=== PATIENT | male | born 1980 | race Caucasian/White ===

== ENCOUNTER 2021-01-18 01:38 | Emergency (ER) | payer BC ==
[~2021-01-18] VITALS: Ht 180.3 cm; Wt 79.4 kg
[~2021-01-18 01:38] MED LIST: AZIT250 PO; GUAPHELA PO; HYDACE5 PO; HYDGUAL120 PO; ONDA4ODT MM; PROM25 PO; RXHYDGUAS PO; RXONDA4ODT MM
[2021-01-18] MEDS ORDERED: Prednisone20 MG PO (02:24)
[2021-01-18] MEDS ORDERED: IBU600 MG PO (02:24)
[2021-01-18] MEDS ORDERED: CYCL10 PO (02:24)
== END 2021-01-18 02:43 | disposition home or self-care (01) ==
LOC: ER 01:38
DX: M54.41 Lumbago with sciatica, right side (principal); F17.200 Nicotine dependence, unspecified, uncomplicated; Z88.1 Allergy status to other antibiotic agents
CPT/HCPCS: 99283; J7512

== ENCOUNTER 2024-12-05 17:46 | Emergency (ER) | payer OTHER ==
[~2024-12-05] VITALS: Ht 180.3 cm; Wt 79.4 kg
[~2024-12-05 17:46] MED LIST changes: +CYCL10 PO; +IBU600 MG PO; +Prednisone20 MG PO
[2024-12-05 18:25] VITALS: BP 125/79
[2024-12-05] MEDS ORDERED: Amoxicillin/Clavulanate K 875 MG Tab PO ONE (18:30)
[2024-12-05] MEDS ORDERED: AMOCLA875 PO (19:38)
== END 2024-12-05 19:51 | disposition home or self-care (01) ==
LOC: ER 17:46
DX: S61.452A Open bite of left hand, initial encounter (principal); Z88.1 Allergy status to other antibiotic agents; Z79.899 Other long term (current) drug therapy; F17.200 Nicotine dependence, unspecified, uncomplicated; W54.0XXA Bitten by dog, initial encounter
CPT/HCPCS: 73130; 99283-25; A9270